=== PATIENT | male | born 1975 | race African-American/Black ===

== ENCOUNTER 2021-08-29 14:46 | Inpatient (IN) | payer OTHER ==
[2021-08-29] MEDS ORDERED: LOPERAMIDE HCL 2 MG CAPSULE PO PRN (16:09)
[2021-08-29] MEDS ORDERED: IBUPROFEN 400 MG TABLET (FP) PO PRN (16:09)
[2021-08-29] MEDS ORDERED: MAGNESIUM CITRATE 300 ML BOTTLE PO PRN (16:09)
[2021-08-29] MEDS ORDERED: MAG HYDROX/AL HYDROX/SIMETH 30 ML UNIT-DOSE CUP PO PRN (16:09)
[2021-08-29] MEDS ORDERED: MAGNESIUM HYDROX 2400MG/30ML ORAL SUSPENSION 30 ML CUP PO PRN (16:09)
[2021-08-29] MEDS ORDERED: METHOCARBAMOL 500 MG TABLET PO PRN (16:09)
[2021-08-29] MEDS ORDERED: chlordiazePOXIDE HCL 25 MG CAPSULE PO PRN (16:09)
[2021-08-29] MEDS ORDERED: BISMUTH SUBSALICYLATE 524 MG/30 ML PO PRN (16:09)
[2021-08-29] MEDS ORDERED: MENTHOL/PHENOL 1 EACH UD MM PRN (16:09)
[2021-08-29] MEDS ORDERED: ONDANSETRON *ODT* 4 MG TABLET SL PRN (16:09)
[2021-08-29] MEDS ORDERED: ACETAMINOPHEN 325 MG TABLET (FP) PO PRN ×2 (16:09)
[2021-08-29 18:16] VITALS: BMI 21.2
[2021-08-29] MEDS: NICOTINE 14 MG/24 HOURS TOPICAL PATCH TD SCH (19:47)
[2021-08-29] MEDS: amLODIPine BESYLATE 5 MG TABLET (FP) PO SCH (19:48)
[2021-08-29] MEDS: PRENATAL VITAMINS W/ FOLIC ACID TABLET (FP) PO SCH (19:48)
[2021-08-29] MEDS: hydrOXYzine PAMOATE 25 MG CAPSULE (FP) PO SCH ×2 (19:48→22:22)
[2021-08-29] MEDS: chlordiazePOXIDE HCL 25 MG CAPSULE PO SCH ×2 (19:48→22:23)
[2021-08-29] MEDS: ALBUTEROL SO4 HFA INHALER IH PRN (20:39)
[2021-08-29] MEDS: MELATONIN 5 MG TABLETS PO SCH (22:22)
[2021-08-29] MEDS: THIAMINE HCL 100 MG TABLET (FP) PO SCH (22:22)
[2021-08-29] MEDS: cloNIDine HCL 0.1 MG TABLET PO SCH (22:23)
[2021-08-30] MEDS: chlordiazePOXIDE HCL 25 MG CAPSULE PO SCH ×4 (04:58→22:18)
[2021-08-30] MEDS: ALBUTEROL SO4 HFA INHALER IH PRN ×3 (05:00→16:40)
[2021-08-30] MEDS: hydrOXYzine PAMOATE 25 MG CAPSULE (FP) PO SCH ×2 (05:00→10:25)
[2021-08-30] MEDS: NICOTINE 14 MG/24 HOURS TOPICAL PATCH TD SCH (10:24)
[2021-08-30] MEDS: cloNIDine HCL 0.1 MG TABLET PO SCH ×2 (10:25→22:18)
[2021-08-30] MEDS: amLODIPine BESYLATE 5 MG TABLET (FP) PO SCH (10:25)
[2021-08-30] MEDS: PRENATAL VITAMINS W/ FOLIC ACID TABLET (FP) PO SCH (10:25)
[2021-08-30 13:02] LABS: HEMATOCRIT 37.8 % (35.4-49); MCH 27.2 pg (25.7-33.7); MCHC 34.3 g/dl (32.0-35.9); MEAN CELL VOLUME 79.4 fl (80-96); MEAN PLT VOLUME 7.3 fl (7.5-11.1); PLATELET COUNT 577 10^3/uL (134-434); RBC 4.76 M/mm3 (4.00-5.60); RDW 18.5 % (11.9-15.9); WHITE BLOOD COUNT 4.9 K/mm3 (4.0-10.0)
[2021-08-30 13:07] LABS: CALCIUM 9.5 mg/dL (8.5-10.1)
[2021-08-30 13:08] LABS: ALBUMIN 3.7 g/dl (3.4-5.0); BLOOD UREA NITROGEN 15.4 mg/dL (7-18)
[2021-08-30 13:11] LABS: CREATININE 0.9 mg/dL (0.55-1.3)
[2021-08-30 13:13] LABS: BILIRUBIN,TOTAL 0.9 mg/dL (0.2-1)
[2021-08-30 13:14] LABS: TOT PROT 6.6 g/dl (6.4-8.2)
[2021-08-30] MEDS: NICOTINE 10 MG CARTRIDGE (INHALER) IH PRN (22:17)
[2021-08-30] MEDS: MELATONIN 5 MG TABLETS PO SCH (22:18)
[2021-08-30] MEDS: THIAMINE HCL 100 MG TABLET (FP) PO SCH (22:18)
[2021-08-30] MEDS: MIRTAZAPINE 15 MG TABLET (FP) PO SCH (22:18)
[2021-08-30] MEDS: hydrOXYzine PAMOATE 25 MG CAPSULE (FP) PO PRN (22:19)
[2021-08-31] MEDS: chlordiazePOXIDE HCL 25 MG CAPSULE PO SCH ×4 (05:15→22:01)
[2021-08-31] MEDS: ALBUTEROL SO4 HFA INHALER IH PRN ×4 (05:16→22:04)
[2021-08-31] MEDS: NICOTINE 14 MG/24 HOURS TOPICAL PATCH TD SCH (10:07)
[2021-08-31] MEDS: cloNIDine HCL 0.1 MG TABLET PO SCH ×2 (10:08→22:01)
[2021-08-31] MEDS: amLODIPine BESYLATE 5 MG TABLET (FP) PO SCH (10:08)
[2021-08-31] MEDS: PRENATAL VITAMINS W/ FOLIC ACID TABLET (FP) PO SCH (10:08)
[2021-08-31] MEDS: NICOTINE 10 MG CARTRIDGE (INHALER) IH PRN (17:16)
[2021-08-31] MEDS: THIAMINE HCL 100 MG TABLET (FP) PO SCH (22:02)
[2021-08-31] MEDS: MIRTAZAPINE 15 MG TABLET (FP) PO SCH (22:02)
[2021-08-31] MEDS: MELATONIN 5 MG TABLETS PO SCH (22:02)
[2021-09-01] MEDS ORDERED: chlordiazePOXIDE HCL 10 MG CAPSULE PO PRN
[2021-09-01] MEDS: chlordiazePOXIDE HCL 10 MG CAPSULE PO SCH ×4 (05:05→22:21)
[2021-09-01] MEDS: ALBUTEROL SO4 HFA INHALER IH PRN ×4 (05:07→22:19)
[2021-09-01] MEDS: NICOTINE 10 MG CARTRIDGE (INHALER) IH PRN ×2 (10:11→18:10)
[2021-09-01] MEDS: amLODIPine BESYLATE 5 MG TABLET (FP) PO SCH (10:12)
[2021-09-01] MEDS: NICOTINE 14 MG/24 HOURS TOPICAL PATCH TD SCH (10:12)
[2021-09-01] MEDS: cloNIDine HCL 0.1 MG TABLET PO SCH ×2 (10:12→22:19)
[2021-09-01] MEDS: PRENATAL VITAMINS W/ FOLIC ACID TABLET (FP) PO SCH (10:14)
[2021-09-01 10:48] LABS: INR 0.82 (0.83-1.09); PROTHROMBIN TIME (PATIENT) 9.4 SEC (9.7-13.0)
[2021-09-01 10:51] LABS: ACTIVATED PTT 34.7 SECONDS (25.2-36.5)
[2021-09-01] MEDS: hydrOXYzine PAMOATE 25 MG CAPSULE (FP) PO PRN (18:11)
[2021-09-01] MEDS: MIRTAZAPINE 15 MG TABLET (FP) PO SCH (22:19)
[2021-09-01] MEDS: MELATONIN 5 MG TABLETS PO SCH (22:19)
[2021-09-01] MEDS: THIAMINE HCL 100 MG TABLET (FP) PO SCH (22:19)
[2021-09-02] MEDS: ALBUTEROL SO4 HFA INHALER IH PRN ×3 (03:31→22:04)
[2021-09-02] MEDS: chlordiazePOXIDE HCL 10 MG CAPSULE PO SCH ×2 (05:12→17:40)
[2021-09-02] MEDS: cloNIDine HCL 0.1 MG TABLET PO SCH ×2 (10:13→22:01)
[2021-09-02] MEDS: NICOTINE 10 MG CARTRIDGE (INHALER) IH PRN (10:13)
[2021-09-02] MEDS: amLODIPine BESYLATE 5 MG TABLET (FP) PO SCH (10:13)
[2021-09-02] MEDS: NICOTINE 14 MG/24 HOURS TOPICAL PATCH TD SCH (10:13)
[2021-09-02] MEDS: PRENATAL VITAMINS W/ FOLIC ACID TABLET (FP) PO SCH (10:13)
[2021-09-02] MEDS ORDERED: ASPIRIN 81 MG CHEWABLE TABLETS PO SCH (10:30)
[2021-09-02] MEDS: MIRTAZAPINE 15 MG TABLET (FP) PO SCH (22:01)
[2021-09-02] MEDS: THIAMINE HCL 100 MG TABLET (FP) PO SCH (22:02)
[2021-09-02] MEDS: MELATONIN 5 MG TABLETS PO SCH (22:02)
[2021-09-03] MEDS ORDERED: chlordiazePOXIDE HCL 10 MG CAPSULE PO ONE (05:00)
[2021-09-03] MEDS: ALBUTEROL SO4 HFA INHALER IH PRN (05:22)
[2021-09-03 08:48] VITALS: BP 148/93; PULSE 73; TEMP 97.8
== END 2021-09-03 09:37 | disposition home or self-care (01) | DRG 775 ==
LOC: YASAS 14:46 → Y3N 18:01
PROVIDERS: ADMIT Allergy & Immunology; ATTEND Allergy & Immunology
PROC: HZ2ZZZZ Detoxification Services for Substance Abuse Treatment (ICD-10-PCS; principal; 2021-08-29)
DX: F10.230 Alcohol dependence with withdrawal, uncomplicated (principal); F12.20 Cannabis dependence, uncomplicated; F17.210 Nicotine dependence, cigarettes, uncomplicated; F19.24 Other psychoactive substance dependence with psychoactive substance-induced mood disorder; I10 Essential (primary) hypertension; J45.909 Unspecified asthma, uncomplicated; G47.00 Insomnia, unspecified; D75.839 Thrombocytosis, unspecified; Z56.0 Unemployment, unspecified
CPT/HCPCS: 36415; 80053; 85027; 85032; 85610; 85730; 86780; 93005; 93010; C9803; J0735; U0003; U0005